=== PATIENT | male | born 1970 | race Two or more races ===

== ENCOUNTER 2019-06-09 14:00 | Emergency (ER) | payer OTHER ==
[~2019-06-09] VITALS: Ht 165.1 cm; Wt 72.6 kg
[2019-06-09] MEDS ORDERED: Surgicel 4in x 8in TOPIC ONE (14:15)
[2019-06-09] MEDS ORDERED: Tetanus/Diptheria/Pertussis IM ONE (14:15)
[2019-06-09 14:40] VITALS: BP 119/83
--- NOTE | 2019-06-09 14:41 | NUR ---
ED Nurse Note:pt. came with left 3rd finger laceration at work, tip of finger is off and bleeding, nail is intact, x-ray done and surgicel placed on finger, pressure dressing applied
--- NOTE | 2019-06-09 14:58 | Emergency Room Report ---
History of Present Illness General Chief Complaint: Laceration Source: Patient Present Illness HPI 48-year-old male with no significant past medical history comes in today due to a finger laceration that occurred with a slicer at work. The top layer of his left third digit scant amount of bleeding noted. Patient has full range of motion no motor or sensory deficits noted. Denies any tingling or numbness. Patient is not up-to-date with his tetanus shot. Denies all other injuries, chest pain, shortness of breath, palpitation, or other associated symptoms. Allergies: Coded Allergies: No Known Allergies (Unverified , 06/09/19) Patient History Past Medical History: see triage record Past Surgical History: unable to obtain Pertinent Family History: none Immunizations: other - Tdap given today Reviewed Nursing Documentation: PMH: Agreed; PSxH: Agreed Review of Systems All Other Systems: negative except mentioned in HPI Physical Exam Vital Signs Date Time Temp Pulse Resp B/P (MAP) Pulse Ox O2 Delivery O2 Flow Rate FiO2 06/09/19 14:03 97.3 59 18 119/83 (95) 96 Room Air Sp02 EP Interpretation: reviewed, normal General Appearance: no apparent distress, alert, GCS 15, non-toxic Head: normocephalic, atraumatic Eyes: bilateral eye normal inspection, bilateral eye PERRL ENT: hearing grossly normal, normal pharynx, no angioedema, normal voice Neck: full range of motion, supple/symm/no masses Respiratory: chest non-tender, lungs clear, normal breath sounds, no rhonchi, speaking full sentences Cardiovascular #1: regular rate, rhythm, no edema, no murmur, normal capillary refill Cardiovascular #2: 2+ radial (R), 2+ radial (L) Gastrointestinal: normal bowel sounds, non tender, soft, non-distended, no guarding, no rebound Rectal: deferred Genitourinary: normal inspection, no CVA tenderness Musculoskeletal: back normal, gait/station normal, normal range of motion, non- tender Neurologic: normal inspection, alert, oriented x3 Psychiatric: judgement/insight normal, memory normal, mood/affect normal, no suicidal/homicidal ideation Skin: laceration - left third finger, avulsion lac, no bone exposed Lymphatic: no adenopathy Procedures Additional Procedure Procedure Narrative Surgicel was applied and lots of pressure applied to the affected area and wrapped. Medical Decision Making PA Attestation Diagnosis and treatment plans were reviewed and discussed with my supervising physician Dr. Paez Diagnostic Impression: Primary Impression: Laceration of finger of left hand without foreign body without damage to nail ER Course 48-year-old male with no significant past medical history comes in today due to a finger laceration that occurred with a slicer at work. The top layer of his left third digit scant amount of bleeding noted. Patient has full range of motion no motor or sensory deficits noted. Denies any tingling or numbness. Patient is not up-to-date with his tetanus shot. Denies all other injuries, chest pain, shortness of breath, palpitation, or other associated symptoms. Ddx considered but are not limited to : Superficial laceration, deep laceration , tendon involvement with laceration, laceration with foreign body Vital signs: are WNL, pt. is afebrile H&PE are most consistent with: Ddx considered but are not limited to : Superficial laceration, deep laceration, tendon involvement with laceration, laceration with foreign body Vital signs: are WNL, pt. is afebrile H&PE are most consistent with: Laceration of finger ORDERS: Keflex, ibuprofen ED INTERVENTIONS:*Wound clean and dressed DISCHARGE: At this time pt. is stable for d/c to home. Will provide printed patient care instructions, and any necessary prescriptions. Care plan and follow up instructions have been discussed with the patient prior to discharge. Patient to f/u with Dr Forde tomorrow continue taking medication no suturing is needed as it was an avulsion laceration of the finger. Bleeding had stopped prior to departure. Other X-Ray Diagnostic Results Other X-Ray Diagnostic Results : X-Ray ordered: Left finger # of Views/Limited Vs Complete: 3 View Indication: Pain EP Interpretation: Yes PA Xray: Interpretation reviewed, by supervising MD, and agrees with findings. Interpretation: no dislocation, no soft tissue swelling, no fractures, other - No foreign body and no bony involvement Impression: No acute disease Electronically Signed by: Liza Alcaraz PA-C Last Vital Signs Date Time Temp Pulse Resp B/P (MAP) Pulse Ox O2 Delivery O2 Flow Rate FiO2 06/09/19 14:40 97.3 75 18 119/83 96 Room Air Disposition: HOME, SELF-CARE Condition: Stable Scripts Ibuprofen (Ibu) 800 Mg Tablet 800 MG PO TID, #21 TAB Prov: Liza Mccarthy 06/09/19 Cephalexin* (KEFLEX*) 500 Mg Capsule 500 MG ORAL EVERY 6 HOURS for 7 Days, #28 CAP Prov: Liza Mccarthy 06/09/19 Patient Instructions: Laceration Care, Adult Liza Mccarthy Jun 09, 2019 14:58
[2019-06-09] MEDS ORDERED: IBU800 MG PO (14:59)
[2019-06-09] MEDS ORDERED: CEPHALEXIN500 MG ORAL (14:59)
--- NOTE | 2019-06-09 15:29 | Diagnostic Imaging Report ---
EXAM: XR Left Fingers, 2 or More Views CLINICAL HISTORY: FB TECHNIQUE: Frontal, lateral and oblique views of the fingers of the left hand. COMPARISON: None FINDINGS: Bones joints: No displaced fracture or dislocation identified. Joint space is maintained. No bony lesion. Soft tissues: Soft tissue injury to the distal left third digit. No radiopaque foreign body identified. IMPRESSION: 1. No displaced fracture or dislocation identified. 2. Soft tissue injury to the distal left third digit. No radiopaque foreign body identified.
--- NOTE | 2019-06-09 15:31 | NUR ---
ED Nurse Note:bleeding stopped, pt. was cleared for D/C by ER PA, he received d/c instructions with prescriptions and work miscomp, and left home with steady gait and friend to drive him
== END 2019-06-09 16:15 | disposition home or self-care (01) ==
LOC: EMR 15:20
DX: S61.213A Laceration without foreign body of left middle finger without damage to nail, initial encounter (principal); Z23 Encounter for immunization; W27.8XXA Contact with other nonpowered hand tool, initial encounter; Y92.9 Unspecified place or not applicable; Y99.0 Civilian activity done for income or pay
CPT/HCPCS: 90471; 90715; 99283